=== PATIENT | male | born 1950 | race African-American/Black ===

== ENCOUNTER 2017-07-28 03:37 | Emergency (ER) | payer MEDICARE ==
[2017-07-28] MEDS ORDERED: NORMAL SALINE 1000 ML 1,000 ML IV ONE (03:54)
[2017-07-28] MEDS ORDERED: ONDANSETRON HCL INJ/PF 4 MG/2 ML SDV IV ONE (03:54)
[2017-07-28] MEDS ORDERED: MORPHINE SULFATE 10 MG/ML INJ IV ONE (03:54)
[2017-07-28 04:24] LABS: ABSOLUTE BASOPHILS # (AUTO) 0.1 10^3/uL (0.0-0.2); ABSOLUTE LYMPHOCYTES (AUTO) 0.6 10^3/uL (0.5-4.7); ABSOLUTE MONOCYTES (AUTO) 0.2 10^3/uL (0.1-1.4); ABSOLUTE NEUT (AUTO) 6.3 10^3/uL (1.7-8.2); BASOPHILS % (AUTO) 0.8 % (0-2); EOSINOPHILS % (AUTO) 0.3 % (0-6); HEMATOCRIT 38.5 % (37.9-51.0); HEMOGLOBIN 12.9 g/dL (13.5-17.0); HGB HCT DIFFERENCE 0.2; LYMPHOCYTES % (AUTO) 8.8 % (13-45); MEAN CORPUSCULAR HEMOGLOBIN 32.3 pg (27.0-33.4); MEAN CORPUSCULAR HGB CONC 33.4 g/dL (32.0-36.0); MEAN CORPUSCULAR VOLUME 97 fl (80-97); MONOCYTES % (AUTO) 3.3 % (3-13); RED CELL DISTRIBUTION WIDTH 15.6 % (11.5-14.0); SEGMENTED NEUTROPHILS % (AUTO) 86.8 % (42-78); WHITE BLOOD COUNT 7.2 10^3/uL (4.0-10.5)
[2017-07-28 04:37] LABS: AMORPHOUS SEDIMENT,URINE TRACE /HPF; ANION GAP 8 (5-19); APPEARANCE,URINE CLOUDY; BILIRUBIN,URINE NEGATIVE (NEGATIVE); BLOOD UREA NITROGEN 19 mg/dL (7-20); CALCIUM 9.7 mg/dL (8.4-10.2); CARBON DIOXIDE 28 mmol/L (22-30); CHLORIDE 107 mmol/L (98-107); GLUCOSE 126 mg/dL (75-110); GLUCOSE, URINE NEGATIVE (NEGATIVE); KETONES,URINE NEGATIVE (NEGATIVE); LEUKOCYTE ESTERASE,URINE NEGATIVE (NEGATIVE); NITRITE,URINE NEGATIVE (NEGATIVE); PROTEIN,URINE 100 mg/dL (NEGATIVE); SODIUM 143.1 mmol/L (137-145); URINE SPECIFIC GRAVITY 1.027
--- NOTE | 2017-07-28 04:58 | RADIOLOGY REPORT (SQ) ---
EXAM DESCRIPTION: CT ABDOMEN AND PELVIS WITHOUT CONTRAST CLINICAL HISTORY: right flank pain COMPARISON: None Available. TECHNIQUE: CT of the abdomen and pelvis without IV contrast. FINDINGS: Abdomen: The liver has normal size and density. No calcified gallstones. The spleen, pancreas, and adrenal glands are unremarkable. Moderate right hydronephrosis. There is hyperdense material in the proximal right ureter without a discrete stone identified. Arising from the inferior aspect of the right kidney is a heterogeneous structure with curvilinear calcification measuring 6.4 x 4.5 cm. No left-sided hydronephrosis. Aortoiliac atherosclerosis. Ectasia of the abdominal aorta measuring 2.9 cm. IVC is unremarkable. No free intraperitoneal air. The stomach and duodenum have normal course. Pelvis: Prostate is not enlarged. Urinary bladder is unremarkable. No free pelvic fluid or lymphadenopathy. No dilated loops of large or small bowel. Normal appendix. The visualized lung bases are clear. Calcified right basilar granuloma. No destructive bone lesions identified. Degenerative spondylosis of the thoracolumbar spine. DLP: 440.02 mGy-cm IMPRESSION: 1. Moderate right hydronephrosis with hyperdense material obstructing the proximal right ureter. No discrete stone identified. Material may represent noncalcified stone, hemorrhage, or intraluminal lesion. 2. There is a heterogeneous partially calcified structure arising from the inferior pole of the right kidney measuring 6.4 cm in greatest dimension. This is concerning for renal cell carcinoma. Correlation with contrast-enhanced CT or MRI recommended. 3. Aneurysmal dilatation of the infrarenal abdominal aorta measuring 2.9 cm. Routine follow-up in 5 years recommended. Report called to Dr. Nguyen at 0352 hours on 07/28/2014. This exam was performed according to our departmental dose-optimization program, which includes automated exposure control, adjustment of the mA and/or kV according to patient size and/or use of iterative reconstruction technique.
--- NOTE | 2017-07-28 05:42 | ER Document Report ---
ED General - General Chief Complaint: Urinary Problem Stated Complaint: ABDOMINAL PAIN Time Seen by Provider: 07/28/17 03:49 Notes: Patient is a 67-year-old male presents with complaint of right flank pain and hematuria. He says he has had the pain for a few days but then started having low blood in his urine and the pain became much worse last 24 hours. He also having some vomiting. No fevers. He has not seen a doctor in several years. Therefore has no history of any medical problems per him. He takes no medications. He has no other complaints this time. He denies history of kidney stone. TRAVEL OUTSIDE OF THE [place] IN LAST 30 DAYS: No - Related Data Allergies/Adverse Reactions: No Known Allergies Allergy (Verified 07/28/17 03:38) Past Medical History - Social History Smoking Status: Current Some Day Smoker Frequency of alcohol use: None Drug Abuse: None Family History: Reviewed & Not Pertinent Patient has suicidal ideation: No Patient has homicidal ideation: No Renal/ Medical History: Denies: Hx Peritoneal Dialysis Psychiatric Medical History: Reports: Hx Bipolar Disorder, Hx Schizophrenia - Immunizations Hx Diphtheria, Pertussis, Tetanus Vaccination: Yes Review of Systems - Review of Systems Notes: My Normal Review Basic REVIEW OF SYSTEMS: CONSTITUTIONAL : Denies fever, chills, or sweats. Denies recent illness. CARDIOVASCULAR: Denies chest pain. RESPIRATORY: Denies cough, cold, or chest congestion. Denies shortness of breath, difficulty breathing, or wheezing. GASTROINTESTINAL: Right flank pain and right lower abdominal pain. Recurrent vomiting. GENITOURINARY: Hematuria MUSCULOSKELETAL: Denies neck or back pain or joint pain or swelling. SKIN: Denies rash or skin lesions. NEUROLOGICAL: Denies altered mental status or loss of consciousness. Denies headache. Denies weakness or paralysis or loss of use of either side. Denies problems with gait or speech. Denies sensory or motor loss. ALL OTHER SYSTEMS REVIEWED AND NEGATIVE. Physical Exam - Vital signs Vitals: Temp Pulse Resp BP Pulse Ox 98.0 F 60 18 175/79 H 95 07/28/17 03:46 07/28/17 03:46 07/28/17 03:46 07/28/17 03:46 07/28/17 03:46 - Notes Notes: General Appearance: Well nourished, alert, cooperative, no acute distress, moderate obvious discomfort. Vitals: reviewed, See vital signs table. Head: no swelling or tenderness to the head Eyes: PERRL, EOMI, Conjuctiva clear Mouth: No decreasd moisture Lungs: No wheezing, No rales, No rhonci, No accessory muscle use, good air exchange bilaterally. Heart: Normal rate, Regular rythm, No murmur, no rub Abdomen: Abdomen is soft and only tender over the right portion of the abdomen. Patient does have tenderness to palpation of the right flank. No pain to palpation of the right back. No rigidity. No rebound. No guarding. Extremities: strength 5/5 in all extremities, good pulses in all extremities, no swelling or tenderness in the extremities, no edema. Skin: warm, dry, appropriate color, no rash Neuro: speech clear, oriented x 3, normal affect, responds appropriately to questions. Course - Re-evaluation Re-evalutation: 07/28/17 05:[address] scan shows a large intrarenal mass with hydronephrosis and some obstruction in the proximal ureter from hyperdense material. I talked to the radiologist and he says he does not think this is stones and thinks it may more be clotted blood obstructing the ureter. We do not have urology. I have called [facility] and waiting to hear back from the urologist. She says his pain is under better control. He is no longer nauseous and is not vomiting. 07/28/17 06:[address] Vernon, urologist covering at [facility]. He says the patient's mass has most likely been there for a long time Dr. Vernon says that he can call the office in follow-up outpatiently. I did clarify with Dr. Vernon that the patient does have signs of obstruction in the ureter with moderate hydronephrosis. I informed him that the radiologist felt this is blood clots causing obstruction. Dr. Vernon said that even with these radiological findings the patient could indeed still go home with the obstruction of the ureter. I did ask Dr. Vernon specifically about this. Dr. Vernon said that the patient still can go home and that he can follow-up closely with him in the office. Patient currently is pain-free and looks well. His vital signs are stable. The transfer center did give me the phone number and address to Dr. Vernon's office. He is with [facility]. I did talk to the patient and his family member about the findings and my discussion with Dr. Vernon. They are agreeable to call in the office to follow-up closely. I informed him to call office this morning. I did inform the patient that if at any time he has recurrent pain and vomiting that is not responding to pain medicine or that keeps recurring that he must return to the ER immediately as these are signs of worsening obstruction and that this can cause damage to his kidney if he is obstructed for prolonged period of time. I also informed him he must return to ER immediately if he has any fevers or if he is feeling unwell in any way. Patient agrees with plan will be discharged home. Dictation of this chart was performed using voice recognition software; therefore, there may be some unintended grammatical errors. - Vital Signs Vital signs: Temp Pulse Resp BP Pulse Ox 98.6 F 90 18 127/65 H 91 L 07/28/17 05:52 07/28/17 05:52 07/28/17 05:52 07/28/17 05:52 07/28/17 05:52 - Laboratory Result Diagrams: 07/28/17 04:12 07/28/17 04:12 Laboratory results interpreted by me: 07/28/17 07/28/17 07/28/17 04:12 04:12 04:12 RBC 4.00 L Hgb 12.9 L RDW 15.6 H Seg Neutrophils % 86.8 H Lymphocytes % 8.8 L Creatinine 1.40 H Est GFR (Non-Af Amer) 50 L Glucose 126 H Urine Protein 100 H Urine Blood LARGE H Urine Urobilinogen 4.0 H Discharge - Discharge Clinical Impression: Renal mass Hematuria Qualifiers: Hematuria type: unspecified type Qualified Code(s): R31.9 - Hematuria, unspecified Condition: Good Disposition: HOME, SELF-CARE Additional Instructions: You have a mass on your right kidney that is causing bleeding into your urine. You are have some clots that got stuck in your ureter which caused the pain and vomiting that you had today. This could recur and cause some pain and vomiting. I have prescribed you some pain and nausea medicine. I spoke with Dr. Vernon, the urologist in [place], who says that you do not need to transported to the hospital at this time; however, you do need to follow-up with him in his office closely. He says to call the office this morning and they will get a close follow-up appointment to discuss further treatment options for the mass in your kidney. I am glad you are feeling better now; however, if you start having recurrent pain and vomiting that is not responding to any of the pain medicine you must return to the ER immediately as you may have worsening obstruction of the ureter. Also return to the ER immediately if you have any fevers or have any concerns that you are feeling unwell or getting worse. The morphine pain medicine may make you sleepy so do not drive or operate machinery when taking this medication. I have given you a CD that has a copy of your CT scan as well as printed off your lab results. Please take these with you to your appointment. Dr. Vernon [facility] [address], [place] [phone] Prescriptions: Morphine Sulfate [Morphine Ir 15 Mg Tablet] 15 mg PO Q6 PRN #15 tablet PRN Reason: Ondansetron [Zofran Odt 4 mg Tablet] 1 tab PO Q4H PRN #15 tab.rapdis PRN Reason: For Nausea/Vomiting
[2017-07-28 06:41] VITALS: BP 132/71
== END 2017-07-28 06:39 | disposition home or self-care (01) ==
LOC: ER 03:37
DX: N28.89 Other specified disorders of kidney and ureter (principal); R31.9 Hematuria, unspecified; F17.200 Nicotine dependence, unspecified, uncomplicated; R10.31 Right lower quadrant pain; R11.10 Vomiting, unspecified
CPT/HCPCS: 99284; 96361; 96374; 96375; 36415; 85025; 80048; 81001; 76380; J2270; J2405; J7030

== ENCOUNTER 2017-07-31 18:06 | Emergency (ER) | payer MEDICARE ==
--- NOTE | 2017-07-31 18:27 | ER Document Report ---
ED Medical Screen (RME) - General Chief Complaint: Urinary Problem Stated Complaint: BLOOD IN URINE Time Seen by Provider: 07/31/17 18:24 Notes: This 67-year-old male patient comes emergency room for blood in urine. He was seen here on 07/28/2017 early in the morning for blood and urine and found to have what is probably going to be a renal cell carcinoma of the right kidney. He was discharged home with pain medication. He returns tonight because of blood in urine. No other symptoms. I have greeted and performed a rapid initial assessment of this patient. A comprehensive ED assessment and evaluation of the patient, analysis of test results and completion of the medical decision making process will be conducted by additional ED providers. TRAVEL OUTSIDE OF THE [place] IN LAST 30 DAYS: No - Related Data Allergies/Adverse Reactions: No Known Allergies Allergy (Verified 07/31/17 18:07) Past Medical History Renal/ Medical History: Denies: Hx Peritoneal Dialysis Psychiatric Medical History: Reports: Hx Bipolar Disorder, Hx Schizophrenia - Immunizations Hx Diphtheria, Pertussis, Tetanus Vaccination: Yes Physical Exam - Vital signs Vitals: Temp Pulse Resp BP Pulse Ox 97.8 F 73 18 167/88 H 97 07/31/17 18:14 07/31/17 18:14 07/31/17 18:14 07/31/17 18:14 07/31/17 18:14 Course - Vital Signs Vital signs: Temp Pulse Resp BP Pulse Ox 97.8 F 73 18 167/88 H 97 07/31/17 18:14 07/31/17 18:14 07/31/17 18:14 07/31/17 18:14 07/31/17 18:14
[2017-07-31 18:53] LABS: APPEARANCE,URINE CLOUDY; BILIRUBIN,URINE NEGATIVE (NEGATIVE); GLUCOSE, URINE NEGATIVE (NEGATIVE); KETONES,URINE NEGATIVE (NEGATIVE); LEUKOCYTE ESTERASE,URINE NEGATIVE (NEGATIVE); NITRITE,URINE NEGATIVE (NEGATIVE); PROTEIN,URINE 100 mg/dL (NEGATIVE); URINE SPECIFIC GRAVITY 1.015
--- NOTE | 2017-07-31 19:33 | RADIOLOGY REPORT (SQ) ---
EXAM DESCRIPTION: CT LTD RENAL STONE PROTOCOL ON COMPLETED DATE/TIME: 07/31/2017 7:08 pm REASON FOR STUDY: hematuria COMPARISON: None. 07/28/2017. TECHNIQUE: CT scan of the abdomen and pelvis performed without intravenous or oral contrast. Images reviewed with lung, soft tissue, and bone windows. Reconstructed coronal and sagittal MPR images revi ewed. All images stored on PACS. All CT scanners at this facility use dose modulation, iterative reconstruction, and/or weight based d osing when appropriate to reduce radiation dose to as low as reasonably achievable (ALARA). [facility]: Dose Right [facility]: CareDose [facility]: Dose Right [facility]: Teradose 4D [facility]: Smart Excellence[employer]u RADIATION DOSE: CT Rad equipment meets quality standard of care and radiation dose reduction techniq ues were employed. CTDIvol: 6.2 mGy. DLP: 318 mGy-cm.mGy. LIMITATIONS: None. FINDINGS: RIGHT KIDNEY AND URETER: BEFORE, A SIZABLE LARGELY SOFT TISSUE LARGELY EXOPHYTIC MASS I NVOLVES THE RIGHT RENAL LOWER POLE AND PROJECTS INFERIORLY. THIS MEASURES AT LEAST 5 X 8 CM AP BY TR ANSVERSE, POSSIBLY UP TO NEARLY 7 CM CRANIOCAUDAL, CLOSELY APPROACHING THE RENAL PELVIS. NO SUGGESTI ON OF SIGNIFICANT RENAL COLLECTING SYSTEM DILATATION TODAY. NO DISCRETE STONES IN THE URETER. LEFT KIDNEY AND URETER: NO SOLID MASS, SIGNIFICANT CALCIFICATION OR HYDRONEPHROSIS. OTHER: CHRONIC PATCHY LUNG BASE OPACITIES. NO DEVELOPING BOWEL OBSTRUCTION. NORMAL APPENDIX. BONES INTACT. CHRONIC INFRARENAL ANEURYSM OF THE AORTA, JUST AT 3 CM. IMPRESSION: 1. SIZABLE WORRISOME MASS PROJECTS OFF THE RIGHT RENAL LOWER POLE, BEFORE. SUSPICIO US FOR RENAL CELL CARCINOMA. 2. NO EVIDENCE OF OVERT URINARY OBSTRUCTION OR DISCRETE STONES TODAY. TECHNICAL DOCUMENTATION: JOB ID: [id number] Quality ID # [id number]: Final reports with documentation of one or more dose reduction techniques (e.g., Au tomated exposure control, adjustment of the mA and/or kV according to patient size, use of iterative reconstruction technique) 2010 [employer]- All Rights Reserved
--- NOTE | 2017-07-31 19:51 | ER Document Report ---
ED General - General Chief Complaint: Urinary Problem Stated Complaint: BLOOD IN URINE Time Seen by Provider: 07/31/17 18:24 Mode of Arrival: Ambulatory Information source: Patient Notes: 67-year-old male who was recently diagnosed with carcinoma of his kidney with hematuria on previous visit presents with complaints of hematuria. Patient states there is no difference in the bleeding, and that he has an appointment with oncology on Tuesday. TRAVEL OUTSIDE OF THE [place] IN LAST 30 DAYS: No - HPI Onset: Last week Onset/Duration: Persistent Quality of pain: Achy Severity: Mild Pain Level: 1 Associated symptoms: Other Exacerbated by: Denies Relieved by: Denies Similar symptoms previously: Yes Recently seen / treated by doctor: Yes - Related Data Allergies/Adverse Reactions: No Known Allergies Allergy (Verified 07/31/17 18:07) Past Medical History - Social History Smoking Status: Current Every Day Smoker Cigarette use (# per day): Yes Chew tobacco use (# tins/day): No Smoking Education Provided: No Frequency of alcohol use: None Drug Abuse: None Family History: Reviewed & Not Pertinent Patient has suicidal ideation: No Patient has homicidal ideation: No Renal/ Medical History: Denies: Hx Peritoneal Dialysis Psychiatric Medical History: Reports: Hx Bipolar Disorder, Hx Schizophrenia - Immunizations Hx Diphtheria, Pertussis, Tetanus Vaccination: Yes Review of Systems - Review of Systems Notes: REVIEW OF SYSTEMS: CONSTITUTIONAL : Denies fever, chills, or sweats. Denies recent illness. EENT: Denies eye, ear, throat, or mouth pain or symptoms. Denies nasal or sinus congestion or discharge. Denies throat, tongue, or mouth swelling or difficulty swallowing. CARDIOVASCULAR: Denies chest pain. Denies palpitations or racing or irregular heart beat. Denies ankle edema. RESPIRATORY: Denies cough, cold, or chest congestion. Denies shortness of breath, difficulty breathing, or wheezing. GASTROINTESTINAL: Denies abdominal pain or distention. Denies nausea, vomiting , or diarrhea. Denies blood in vomitus, stools, or per rectum. Denies black, tarry stools. Denies constipation. GENITOURINARY: Admits to blood in urine MUSCULOSKELETAL: Denies back or neck pain or stiffness. Denies joint pain or swelling. SKIN: Denies rash, lesions or sores. HEMATOLOGIC : Denies easy bruising or bleeding. LYMPHATIC: Denies swollen, enlarged glands. NEUROLOGICAL: Denies confusion or altered mental status. Denies passing out or loss of consciousness. Denies dizziness or lightheadedness. Denies headache. Denies weakness or paralysis or loss of use of either side. Denies problems with gait or speech. Denies sensory loss, numbness, or tingling. Denies seizures. PSYCHIATRIC: Denies anxiety or stress. Denies depression, suicidal ideation, or homicidal ideation. ALL OTHER SYSTEMS REVIEWED AND NEGATIVE. Dictation was performed using [employer] voice recognition software PHYSICAL EXAMINATION: GENERAL: Well-appearing, well-nourished and in no acute distress. HEAD: Atraumatic, normocephalic. EYES: Pupils equal round and reactive to light, extraocular movements intact, sclera anicteric, conjunctiva are normal. ENT: Nares patent, oropharynx clear without exudates. Moist mucous membranes. NECK: Normal range of motion, supple without lymphadenopathy LUNGS: Breath sounds clear to auscultation bilaterally and equal. No wheezes rales or rhonchi. HEART: Regular rate and rhythm without murmurs ABDOMEN: Soft, nontender, nondistended abdomen. No guarding, no rebound. No masses appreciated. Mild CVA tenderness Musculoskeletal: Normal range of motion, no pitting or edema. No cyanosis. NEUROLOGICAL: Cranial nerves grossly intact. Normal speech, normal gait. Normal sensory, motor exams PSYCH: Normal mood, normal affect. SKIN: Warm, Dry, normal turgor, no rashes or lesions noted. Physical Exam - Vital signs Vitals: Temp Pulse Resp BP Pulse Ox 97.8 F 73 18 167/88 H 97 07/31/17 18:14 07/31/17 18:14 07/31/17 18:14 07/31/17 18:14 07/31/17 18:14 Course - Re-evaluation Re-evalutation: 07/31/17 22:31 Patient overall looks well is in no distress, I am a bit confused as to his presentation given that he has no questions has no new complaints, I did repeat imaging in no abnormalities noted of the kidney otherwise for the renal cell carcinoma. I have insisted and asked him to promise me that he will follow-up with oncology which he states he will do so After performing a Medical Screening Examination, I estimate there is LOW risk for ACUTE APPENDICITIS, BOWEL OBSTRUCTION, ACUTE CHOLECYSTITIS, PERFORATED DIVERTICULITIS, INCARCERATED HERNIA, PANCREATITIS, TESTICULAR TORSION or PERFORATED ULCER, thus I consider the discharge disposition reasonable. Also, there is no evidence or peritonitis, sepsis, or toxicity. I have reevaluated this patient multiple times and no significant life threatening changes are noted. The patient and I have discussed the diagnosis and risks, and we agree with discharging home with close follow-up with the understanding that symptoms and presentations can change. We also discussed returning to the Emergency Department immediately if new or worsening symptoms occur. We have discussed the symptoms which are most concerning (e.g., bloody stool, fever, changing or worsening pain, intractable vomiting - standard verbal up date) that necessitate immediate return. - Vital Signs Vital signs: Temp Pulse Resp BP Pulse Ox 98.8 F 74 18 164/74 H 97 07/31/17 20:19 07/31/17 20:19 07/31/17 20:19 07/31/17 20:19 07/31/17 18:14 - Laboratory Laboratory results interpreted by me: 07/31/17 18:30 Urine Protein 100 H Urine Blood LARGE H Urine Urobilinogen 2.0 H - Diagnostic Test Radiology reviewed: Image reviewed, Reports reviewed - renal cell carcinoma Discharge - Discharge Clinical Impression: Renal mass Hematuria Qualifiers: Hematuria type: gross Qualified Code(s): R31.0 - Gross hematuria Condition: Stable Disposition: HOME, SELF-CARE Additional Instructions: You must see the oncologist on tuesday per your previous appointment
[2017-07-31 20:20] VITALS: BP 164/74
== END 2017-07-31 20:20 | disposition home or self-care (01) ==
LOC: ER 18:06
DX: C64.1 Malignant neoplasm of right kidney, except renal pelvis (principal); R31.0 Gross hematuria; F17.210 Nicotine dependence, cigarettes, uncomplicated
CPT/HCPCS: 76380; 81001; 99284

== ENCOUNTER → 2019-09-19 | Outpatient (CLI) | payer MEDICARE ==
--- NOTE | 2019-09-19 16:37 | RADIOLOGY REPORT (SQ) ---
EXAM DESCRIPTION: CT ABD/PELVIS WITH IV ONLY; CT CHEST WITH COMPLETED DATE/TIME: 09/19/2019 12:50 pm REASON FOR STUDY: C64.1 MALIGNANT NEOPLASM OF RIGHT KIDNEY, EXCEPT RENAL PELVIS C64.1 MALIGNANT REINIER PLASM OF RIGHT KIDNEY, EXCEPT RENAL PELVI COMPARISON: 05/08/2019 CONTRAST TYPE AND DOSE: contrast/concentration: Isovue 300.00 mg/ml; Total Contrast Delivered: 88.0 ml; Total Saline Delivered: 70.0 ml RENAL FUNCTION: Creatinine 1.5 TECHNIQUE: CT scan of the chest performed using helical scanning technique with dynamic intravenous contrast injection. Images reviewed with lung, soft tissue and bone windows. Reconstructed coronal a nd sagittal MPR images reviewed. All images stored on PACS. CT scan of the abdomen and pelvis performed with intravenous and oral contrast using helical scanning technique with dynamic intravenous contrast injection. Images reviewed with lung, soft tissue and b one windows. Reconstructed coronal and sagittal MPR images reviewed. Delayed images for evaluation of the urinary system also acquired and evaluated. All images stored on PACS. All CT scanners at this facility use dose modulation, iterative reconstruction, and/or weight based d osing when appropriate to reduce radiation dose to as low as reasonably achievable (ALARA). [facility]: Dose Right [facility]: CareDose [facility]: Dose Right [facility]: Teradose 4D [facility]: Smart [employer] RADIATION DOSE: CT Rad equipment meets quality standard of care and radiation dose reduction techniq ues were employed. CTDIvol: 5.0 - 6.3 mGy. DLP: 745 mGy-cm. . LIMITATIONS: None. FINDINGS: CHEST: AXILLAE: No adenopathy. CHEST WALL: No masses. No subcutaneous air. LUNGS: Mild centrilobular emphysematous changes. There multiple small pulmonary nodules that are lar mookie. Examples: 5.8 mm nodule in the right upper lobe posteriorly on image 33 that measures 4.3 mm o n the earlier study. 6.3 mm nodule in the right lower lobe posteriorly on image 76 that measures 5 m m on the earlier study. Multiple smaller nodules are present that shows similar changes. PLEURA: No effusions. No calcifications. THYROID: No masses or significant asymmetry. HILAR AND MEDIASTINAL STRUCTURES: No identified masses or abnormal nodes. AORTA AND GREAT VESSELS: No aneurysm. No dissection. PULMONARY ARTERIES: No identified pulmonary emboli. Study not optimized for the pulmonary arteries. HEART: No pericardial effusion. Coronary atherosclerosis is present. HARDWARE AND LIFELINES: None. BONES: No significant finding. OTHER: No other significant finding. ABDOMEN AND PELVIS: LIVER: Normal size. No masses. No dilated ducts. SPLEEN: Normal size. No focal lesions. PANCREAS: No masses. No significant calcifications. No adjacent inflammation or peripancreatic flui d collections. Pancreatic duct not dilated. GALLBLADDER: No identified stones by CT criteria. No inflammatory changes to suggest cholecystitis. ADRENAL GLANDS: No significant masses or asymmetry. RIGHT KIDNEY AND URETER: Surgically absent. LEFT KIDNEY AND URETER: No solid masses. No significant calcifications. No hydronephrosis or hydr oureter. AORTA AND VESSELS: 31.4 mm aneurysm of the infrarenal abdominal aorta. Slightly larger. RETROPERITONEUM: No retroperitoneal adenopathy, hemorrhage or masses. LARGE AND SMALL BOWEL: No dilatation. No masses. No wall thickening. APPENDIX: Normal. ABDOMINAL WALL: No hernia or masses. PERITONEAL CAVITY: No free air. No free fluid. No peritoneal implants or masses. PELVIS: No mass or free fluid. Normal bladder. BONES: No significant or acute findings. OTHER: No other significant finding. IMPRESSION: CHEST: There are multiple small pulmonary nodules that have increased in size since the prior study suggesting metastatic disease to the lungs. ABDOMEN AND PELVIS: No abdominal or pelvic metastases are seen. Small aneurysm of the infrarenal ab dominal aorta is slightly larger. COMMENT: AAA Size: Follow-up Recommendation 3.0-3.4 cm Every 3 years *Based upon the Society for Vascular Surgery Guidelines: J Vasc Surg. 2009 May;50(4 Suppl):S2-49 *For aortas of maximum diameter of 2.6-2.9 cm meeting the criteria for AAA (?1.5 x proximal normal se gment) TECHNICAL DOCUMENTATION: JOB ID: [id number] Quality ID # 436: Final reports with documentation of one or more dose reduction techniques (e.g., Au tomated exposure control, adjustment of the mA and/or kV according to patient size, use of iterative reconstruction technique) 2010 [employer]- All Rights Reserved Reading location - IP/workstation name: [email or web address]
== END ==
LOC: RAD 12:14
PROVIDERS: ATTEND Internal Medicine
DX: C64.1 Malignant neoplasm of right kidney, except renal pelvis (principal)
CPT/HCPCS: 71260; 74177; 82565

== ENCOUNTER 2019-10-01 08:44 | Day surgery (SDC) | payer MEDICARE ==
[2019-10-01 09:30] LABS: HEMATOCRIT 36.8 % (37.9-51.0); HEMOGLOBIN 12.2 g/dL (13.5-17.0); MEAN CORPUSCULAR VOLUME 94 fl (80-97); PLATELET COUNT 215 10^3/uL (150-450); RED BLOOD COUNT 3.92 10^6/uL (4.35-5.55); RED CELL DISTRIBUTION WIDTH 16.6 % (11.5-14.0); WHITE BLOOD COUNT 3.3 10^3/uL (4.0-10.5)
[2019-10-01 09:35] LABS: INTERNATIONAL RATION (INR) 1.02; PROTHROMBIN TIME 13.4 SEC (11.4-15.4)
[2019-10-01 09:36] LABS: PARTIAL THROMBOPLASTIN TIME 29.6 SEC (23.5-35.8)
[2019-10-01 09:52] LABS: BLOOD UREA NITROGEN 21 mg/dL (7-20)
[2019-10-01] MEDS ORDERED: FENTANYL CITRATE INJ/PF 100 MCG/2 ML AMPUL ONE (10:43)
[2019-10-01] MEDS ORDERED: MIDAZOLAM 2 MG/2 ML INJ ONE (10:43)
--- NOTE | 2019-10-01 14:13 | RADIOLOGY REPORT (SQ) ---
EXAM DESCRIPTION: CHEST SINGLE VIEW COMPLETED DATE/TIME: 10/01/2019 2:03 pm REASON FOR STUDY: POST LUNG BIOPSY COMPARISON: CT of the chest without contrast from 10/01/2019. EXAM PARAMETERS: NUMBER OF VIEWS: One view. TECHNIQUE: An AP view of the chest was obtained. RADIATION DOSE: NA LIMITATIONS: None. FINDINGS: LUNGS AND PLEURA: Status post CT-guided biopsy of a left lower lobe nodule. There is no s izable postprocedural pneumothorax. The patchy opacities in the inferior left hemithorax could repre sent in part the alveolar hemorrhage that developed from the biopsy. MEDIASTINUM AND HILAR STRUCTURES: No mediastinal or hilar contour abnormality. HEART AND VASCULAR STRUCTURES: The cardiac silhouette and pulmonary vasculature are within normal dawkins its. BONES: No acute findings. HARDWARE: None in the chest. OTHER: No other finding. IMPRESSION: No postprocedural pneumothorax. TECHNICAL DOCUMENTATION: JOB ID: [id number] 2010 [employer]- All Rights Reserved Reading location - IP/workstation name: [email or web address]
--- NOTE | 2019-10-01 14:27 | RADIOLOGY REPORT (SQ) ---
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 FLUORO TIME: 22.8 seconds. 261 images submitted to PACS. LIMITATIONS: None. PROCEDURE: The procedure, risks, benefits, and alternatives were discussed with the patient in the p reprocedural area, and all questions were answered. Informed consent was obtained verbally and in wri ting. The patient was then brought to the CT suite, positioned prone on the CT gurney, and a time-out was p erformed. After that, axial images of the chest were obtained for targeting of the subpleural left l ower lobe nodule. Based on review of the axial images an appropriate access site was selected on the skin. The area around selected access site was then prepped and draped 2% chlorhexidine utilizing standard sterile technique. After that, the access site was infiltrated with 1% lidocaine and an incision was made in the skin with a #11 blade. A 19 gauge coaxial needle was then advanced through the skin inci rich and into the subpleural left lower lobe nodule utilizing CT fluoroscopic guidance. After that, t he inner stylet of the coaxial needle was removed and 4 20 gauge core samples were obtained - the ministerio ples were collected and submitted to cytopathology in formalin. The coaxial needle was then removed and axial images of the chest were repeated and reviewed ; the im ages demonstrated an area of alveolar hemorrhage around the biopsied nodule. The patient tolerated the procedure well without immediate complication. At the end of the procedure the patient's condition was unchanged from the preprocedural baseline. IV conscious sedation was administered at the direction of the performing physician by a lorelei patiño. 1 milligrams of Versed and 50 micrograms of fentanyl. Physiologic monitoring was provided befor e, during, and after sedation. The total sedation time was 30 minutes. Documentation of [id number]-[id number] time the performing proceduralist spent monitoring the patient: 15 min utes. IMPRESSION: Successful CT-guided biopsy of the subpleural left lower lobe nodule as detailed above. COMMENT: Patient medication list reviewed:Yes- Quality ID# 130:Eligible professional attests to docu menting in the medical record they obtained, updated, or reviewed the patient's current medications. Quality ID #76: The patient was prepped and draped using maximum sterile barrier technique including cap, mask, sterile gown, sterile gloves, a large sterile sheet, hand hygiene, and 2% Chlorhexidine fo r cutaneous antisepsis. When ultrasound is used, sterile ultrasound techniques are followed requiring sterile gel and sterile probes. Quality ID 145: Final reports for procedures using fluoroscopy that document radiation exposure sandie sergei, or exposure time and number of fluorographic images (if radiation exposure indices are not avail able) Quality ID# 436: Final reports with documentation of one or more dose reduction techniques (e.g., Aut omated exposure control, adjustment of the mA and/or kV according to patient size, use of iterative r econstruction technique) TECHNICAL DOCUMENTATION: JOB ID: [id number] 2010 [employer]- All Rights Reserved rev-11/30 Reading location - IP/workstation name: [email or web address]
--- NOTE | 2019-10-01 14:27 | RADIOLOGY REPORT (SQ) ---
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 FLUORO TIME: 22.8 seconds. 261 images submitted to PACS. LIMITATIONS: None. PROCEDURE: The procedure, risks, benefits, and alternatives were discussed with the patient in the p reprocedural area, and all questions were answered. Informed consent was obtained verbally and in wri ting. The patient was then brought to the CT suite, positioned prone on the CT gurney, and a time-out was p erformed. After that, axial images of the chest were obtained for targeting of the subpleural left l ower lobe nodule. Based on review of the axial images an appropriate access site was selected on the skin. The area around selected access site was then prepped and draped 2% chlorhexidine utilizing standard sterile technique. After that, the access site was infiltrated with 1% lidocaine and an incision was made in the skin with a #11 blade. A 19 gauge coaxial needle was then advanced through the skin inci rich and into the subpleural left lower lobe nodule utilizing CT fluoroscopic guidance. After that, t he inner stylet of the coaxial needle was removed and 4 20 gauge core samples were obtained - the ministerio ples were collected and submitted to cytopathology in formalin. The coaxial needle was then removed and axial images of the chest were repeated and reviewed ; the im ages demonstrated an area of alveolar hemorrhage around the biopsied nodule. The patient tolerated the procedure well without immediate complication. At the end of the procedure the patient's condition was unchanged from the preprocedural baseline. IV conscious sedation was administered at the direction of the performing physician by a lorelei patiño. 1 milligrams of Versed and 50 micrograms of fentanyl. Physiologic monitoring was provided befor e, during, and after sedation. The total sedation time was 30 minutes. Documentation of dyvr-[id number]-[id number] time the performing proceduralist spent monitoring the patient: 15 min utes. IMPRESSION: Successful CT-guided biopsy of the subpleural left lower lobe nodule as detailed above. COMMENT: Patient medication list reviewed:Yes- Quality ID# 130:Eligible professional attests to docu menting in the medical record they obtained, updated, or reviewed the patient's current medications. Quality ID #76: The patient was prepped and draped using maximum sterile barrier technique including cap, mask, sterile gown, sterile gloves, a large sterile sheet, hand hygiene, and 2% Chlorhexidine fo r cutaneous antisepsis. When ultrasound is used, sterile ultrasound techniques are followed requiring sterile gel and sterile probes. Quality ID 145: Final reports for procedures using fluoroscopy that document radiation exposure sandie sergei, or exposure time and number of fluorographic images (if radiation exposure indices are not avail able) Quality ID# 436: Final reports with documentation of one or more dose reduction techniques (e.g., Aut omated exposure control, adjustment of the mA and/or kV according to patient size, use of iterative r econstruction technique) TECHNICAL DOCUMENTATION: JOB ID: [id number] 2010 [employer]- All Rights Reserved rev-11/30 Reading location - IP/workstation name: [email or web address]
[2019-10-01 14:45] VITALS: BP 164/98
== END 2019-10-01 14:49 | disposition home or self-care (01) ==
LOC: RAD 08:44
PROVIDERS: ATTEND Internal Medicine
DX: C79.02 Secondary malignant neoplasm of left kidney and renal pelvis (principal); C64.1 Malignant neoplasm of right kidney, except renal pelvis; R91.1 Solitary pulmonary nodule; Z79.01 Long term (current) use of anticoagulants
CPT/HCPCS: 36415; 84520; 82565; 85027; 85610; 85730; 88342 ×2; 88341 ×2; 88305 ×2; 71045; 77012; 32405; J2250; J3010

== ENCOUNTER → 2020-04-18 | Outpatient (CLI) | payer MEDICARE ==
--- NOTE | 2020-04-18 18:43 | RADIOLOGY REPORT (SQ) ---
EXAM DESCRIPTION: CT CHEST WITH; CT ABD/PELVIS WITH IV ONLY IMAGES COMPLETED DATE/TIME: 04/18/2020 10:59 am REASON FOR STUDY: KIDNEY CANCER C64.1 MALIGNANT NEOPLASM OF RIGHT KIDNEY, EXCEPT RENAL PELVI RENAL FUNCTION: GFR > 60. COMPARISON: 09/19/2019. TECHNIQUE: CT scan of the chest performed using helical scanning technique with dynamic intravenous contrast injection. Images reviewed with lung, soft tissue and bone windows. Reconstructed coronal a nd sagittal MPR images reviewed. All images stored on PACS. All CT scanners at this facility use dose modulation, iterative reconstruction, and/or weight based d osing when appropriate to reduce radiation dose to as low as reasonably achievable (ALARA). [facility]: Dose Right [facility]: CareDose [facility]: Dose Right [facility]: Teradose 4D [facility]: [employer] RADIATION DOSE: . LIMITATIONS: None. FINDINGS: AXILLAE: No adenopathy. CHEST WALL: No masses. No subcutaneous air. LUNGS: Numerous pulmonary nodules have increased in size when compared to prior. For example left lo wer lobe pleural-based nodule now measures 1.6 cm (previously 0.8 mm). See image 91/127. Numerous a dditional nodules. Largest in right lung measures up to 1.4 cm maximally in the transverse plane, ri ght upper lobe image 36/127. This was previously closer to 7 mm. PLEURA: No effusions. No calcifications. THYROID: No masses or significant asymmetry. HILAR AND MEDIASTINAL STRUCTURES: Small mediastinal nodes, subcentimeter stable. AORTA AND GREAT VESSELS: No aneurysm. No dissection. PULMONARY ARTERIES: No identified pulmonary emboli. Study not optimized for the pulmonary arteries. HEART: Marked coronary calcification. HARDWARE AND LIFELINES: None. BONES: No significant finding. OTHER: No other significant finding. IMPRESSION: 1. Progressing pulmonary metastases. Increased size of multiple nodules bilaterally. COMPARISON: As above. RADIATION DOSE: mGy. TECHNIQUE: CT scan of the abdomen and pelvis performed with intravenous and oral contrast using chiquis maggie scanning technique with dynamic intravenous contrast injection. Images reviewed with lung, soft tissue and bone windows. Reconstructed coronal and sagittal MPR images reviewed. Delayed images for evaluation of the urinary system also acquired and evaluated. All images stored on PACS. All CT scanners at this facility use dose modulation, iterative reconstruction, and/or weight based d osing when appropriate to reduce radiation dose to as low as reasonably achievable (ALARA). [facility]: Dose Right [facility]: SureCare [facility]: Dose Right [facility]: Teradose 4D [facility]: [employer] FINDINGS: LIVER: Tiny central liver subcentimeter cyst, stable. SPLEEN: Normal size. No focal lesions. PANCREAS: No masses. No significant calcifications. No adjacent inflammation or peripancreatic flui d collections. Pancreatic duct not dilated. GALLBLADDER: No identified stones by CT criteria. No inflammatory changes to suggest cholecystitis. ADRENAL GLANDS: Absent. RIGHT KIDNEY AND URETER: Absent. LEFT KIDNEY AND URETER: No solid masses. No significant calcification. No hydronephrosis or hydrouret er. AORTA AND VESSELS: Infrarenal fusiform aneurysm measures just over 3 cm, stable. No developing venou s clot. RETROPERITONEUM: No retroperitoneal adenopathy, hemorrhage or masses. LARGE AND SMALL BOWEL: No dilatation. No masses. No wall thickening. APPENDIX: Normal. ABDOMINAL WALL: No hernia or masses. PERITONEAL CAVITY: No free air. No free fluid. No peritoneal implants or masses. PELVIS: Prostate enlargement. Bladder looks normal. No pelvic free fluid or adenopathy. BONES: No significant or acute findings. OTHER: No other significant finding. IMPRESSION: 1. No developing abdominopelvic metastases. 2. Infrarenal abdominal aortic aneurysm, stable. TECHNICAL DOCUMENTATION: JOB ID: [id number] Quality ID # 436: Final reports with documentation of one or more dose reduction techniques (e.g., Au tomated exposure control, adjustment of the mA and/or kV according to patient size, use of iterative reconstruction technique) 2010 [employer]- All Rights Reserved Reading location - IP/workstation name: [email or web address]
== END ==
LOC: RAD 09:00
PROVIDERS: ATTEND Internal Medicine
DX: C64.1 Malignant neoplasm of right kidney, except renal pelvis (principal); C78.02 Secondary malignant neoplasm of left lung; C78.01 Secondary malignant neoplasm of right lung; I71.4 Abdominal aortic aneurysm, without rupture
CPT/HCPCS: 71260; 74177; 82565

== ENCOUNTER → 2020-07-30 | Outpatient (CLI) | payer MEDICARE ==
--- NOTE | 2020-07-30 15:59 | RADIOLOGY REPORT (SQ) ---
EXAM DESCRIPTION: CT ABD/PELVIS WITH IV ONLY; CT CHEST WITH IMAGES COMPLETED DATE/TIME: 07/30/2020 9:48 am REASON FOR STUDY: (C64.1)MALIGNANT NEOPLASM OF RIGHT KIDNEY, EXCEPT RENAL PELVIS C64.1 MALIGNANT NE OPLASM OF RIGHT KIDNEY, EXCEPT RENAL PELVI CONTRAST TYPE AND DOSE: Contrast/concentration: Isovue 300.00 mmol/ml; Total Contrast Delivered: 94. 0 ml; Total Saline Delivered: 45.0 ml RENAL FUNCTION: Creatinine 1.6 milligrams/deciliter. COMPARISON: CT of the chest, abdomen and pelvis from 04/18/2020 TECHNIQUE: CT scan of the chest performed using helical scanning technique with dynamic intravenous contrast injection. Images reviewed with lung, soft tissue and bone windows. Reconstructed coronal a nd sagittal MPR images reviewed. All images stored on PACS. All CT scanners at this facility use dose modulation, iterative reconstruction, and/or weight based d osing when appropriate to reduce radiation dose to as low as reasonably achievable (ALARA). [facility]: Dose Right [facility]: CareDose [facility]: Dose Right [facility]: Teradose 4D [facility]: [employer] RADIATION DOSE: CT Rad equipment meets quality standard of care and radiation dose reduction techniq ues were employed. CTDIvol: 6.0 - 8.7 mGy. DLP: 983 mGy-cm.. LIMITATIONS: None. FINDINGS: AXILLAE: No adenopathy. CHEST WALL: No mass. LUNGS AND PLEURA: The trachea and main bronchi are patent. There is re- demonstration of mild upper lobe predominant centrilobular emphysema. The calcified pleural plaques in the anterolateral aspect of the right hemithorax are unchanged. There is no acute consolidation, ground-glass opacification o r pleural effusion. PULMONARY NODULES: There are numerous bilateral pulmonary nodules that have continued to increase in size; for reference the 50 mm long axis diameter right lower lobe nodule in image 73 of series 6) me asured 11 mm on the prior CT and the 19 mm left lower lobe nodule on image 75 of series 6 measures 16 mm on the prior CT. THYROID: No mass or asymmetry. HILAR AND MEDIASTINAL STRUCTURES: No adenopathy or mass. AORTA AND GREAT VESSELS: Atherosclerotic calcification of the aortic arch and descending thoracic aor ta. The ascending thoracic aorta measures 3.9 cm in diameter. There is no thoracic aortic dissectio n PULMONARY ARTERIES: No filling defects within the main, right and left pulmonary arteries. HEART: No pericardial effusion. HARDWARE AND LIFELINES: None. BONES: No finding. OTHER: No other finding. IMPRESSION: Findings consistent with continued progression of metastatic disease given the increase in the size of the numerous bilateral pulmonary nodules. COMPARISON: None. RADIATION DOSE: CT Rad equipment meets quality standard of care and radiation dose reduction techniq ues were employed. CTDIvol: 6.0 - 8.7 mGy. DLP: 983 mGy-cm. TECHNIQUE: CT scan of the abdomen and pelvis performed with intravenous and oral contrast using chiquis maggie scanning technique with dynamic intravenous contrast injection. Images reviewed with lung, soft tissue and bone windows. Reconstructed coronal and sagittal MPR images reviewed. Delayed images for evaluation of the urinary system also acquired and evaluated. All images stored on PACS. All CT scanners at this facility use dose modulation, iterative reconstruction, and/or weight based d osing when appropriate to reduce radiation dose to as low as reasonably achievable (ALARA). [facility]: Dose Right [facility]: SureCare [facility]: Dose Right [facility]: Teradose 4D [facility]: [employer] FINDINGS: LIVER: The morphology of the liver is noncirrhotic. The subcentimeter low-attenuation les ion in the superior portion of the liver (image 19 of series 3) is unchanged. The portal veins are p atent. SPLEEN: No splenomegaly or splenic mass. PANCREAS: No acute gross abnormality of the pancreas. GALLBLADDER: No acute gross abnormality of the pancreas. ADRENAL GLANDS: No abnormality of the left adrenal gland. The right adrenal gland is surgically abse nt. RIGHT KIDNEY AND URETER: Surgically absent. There is no evidence of local recurrence. LEFT KIDNEY AND URETER: No solid mass, hydronephrosis, nephrolithiasis, hydroureter or ureterolithias is. AORTA AND VESSELS: Unchanged mild fusiform aneurysm of the infrarenal abdominal aorta with a maximum AP diameter of 3.2 cm. RETROPERITONEUM: No retroperitoneal adenopathy, hemorrhage or mass. LARGE AND SMALL BOWEL: No bowel obstruction, bowel wall thickening or pericolonic/ perienteric inflam mation. APPENDIX: Normal. ABDOMINAL WALL: No abdominal wall mass or hernia. PERITONEAL CAVITY: No mesenteric adenopathy, free intraperitoneal fluid or mesenteric/ omental inflam mation. PELVIS: The prostate gland is enlarged. The urinary bladder is partially distended. BONES: Degenerative spondylosis and facet joint arthropathy of the lumbar spine. There is no acute f racture. OTHER: No other findings. IMPRESSION: 1. No acute intra-abdominal abnormality. 2. Unchanged mild fusiform aneurysm of the infrarenal abdominal aorta. TECHNICAL DOCUMENTATION: JOB ID: [id number] Quality ID # 436: Final reports with documentation of one or more dose reduction techniques (e.g., Au tomated exposure control, adjustment of the mA and/or kV according to patient size, use of iterative reconstruction technique) 2010 [employer]- All Rights Reserved Reading location - IP/workstation name: [email or web address]
== END ==
LOC: RAD 08:54
PROVIDERS: ATTEND Internal Medicine
DX: C64.1 Malignant neoplasm of right kidney, except renal pelvis (principal); I71.4 Abdominal aortic aneurysm, without rupture
CPT/HCPCS: 71260; 74177